=== PATIENT | female | born 1970 | race Caucasian/White ===

== ENCOUNTER 2020-03-01 19:44 | Emergency (ER) | payer BC ==
[2020-03-01] MEDS ORDERED: NA CHLORIDE 0.9% 1,000 ML ONE (20:38)
[2020-03-01] MEDS ORDERED: METOCLOPRAMIDE 10 MG/2mL INJ ONE (20:38)
[2020-03-01] MEDS ORDERED: DIPHENHYDRAMINE 50 MG/ML VIAL ONE (20:38)
[2020-03-01 20:39] LABS: Absolute Lymphocytes (CBC) 2.8 K/uL (0.7-4.9); Basophils % 0.7 % (0-1.3); Hematocrit 44.2 % (36.0-45.0); Lymphocytes % 31.4 % (15.3-44.8); MPV 8.5 fL (7.6-11.3); RBC Red Blood Cell Count 4.76 M/uL (3.86-4.86)
[2020-03-01] MEDS ORDERED: NA CHLORIDE 0.9% 50 ML IV ONE (20:39)
[2020-03-01 20:41] LABS: Urine Appearance CLEAR; Urine Bilirubin NEGATIVE (NEG); Urine Blood NEGATIVE (NEG); Urine Color YELLOW; Urine Glucose NEGATIVE (NEG); Urine Protein NEGATIVE (NEG); Urine Urobilinogen 0.2 mg/dL (0.2-1.0); Urine pH 6.5 (5.0-7.0)
[2020-03-01 20:42] LABS: Protime INR 0.86
[2020-03-01 21:05] LABS: Urine Microscopic Reflex ORDER UMIC
[2020-03-01 21:13] LABS: Urine Bacteria 20-50 /HPF (<20); Urine Culture Reflex Order REFLEXED; Urine RBC NONE SEEN /HPF (NONE SEEN)
[2020-03-01 21:14] LABS: ALT/SGPT 11 U/L (12-78); AST/SGOT 9 U/L (15-37); Alkaline Phosphatase 68 U/L (45-117); BUN Blood Urea Nitrogen 15 mg/dL (7-18); Bicarbonate 30 mmol/L (21-32); Bilirubin Direct 0.2 mg/dL (0-0.2); Bilirubin Total 0.6 mg/dL (0.2-1.0); Glucose Level 104 mg/dL (74-106); Magnesium 2.3 mg/dL (1.8-2.4); Protein, Total 7.8 g/dL (6.4-8.2); Sodium Level 141 mmol/L (136-145); Troponin (Emerg Dept Use Only) < 0.02 ng/mL (0.0-0.045)
--- NOTE | 2020-03-01 21:19 | RAD REPORT ---
EXAM DESCRIPTION: CT - Head Brain Wo Cont - 03/01/2020 9:12 pm CLINICAL HISTORY: HEADACHE Headache, drowsiness COMPARISON: No comparisons TECHNIQUE: All CT scans are performed using dose optimization technique as appropriate and may inclu de automated exposure control or mA/KV adjustment according to patient size. FINDINGS: No intracranial hemorrhage, hydrocephalus or extra-axial fluid collection.No areas of brai n edema or evidence of midline shift. The paranasal sinuses and mastoids are clear. The calvarium is intact. IMPRESSION: No acute intracranial abnormality.
--- NOTE | 2020-03-01 21:48 | RAD REPORT ---
EXAM DESCRIPTION: RAD - Chest Single View - 03/01/2020 9:39 pm CLINICAL HISTORY: hypertension Chest pain. COMPARISON: CHEST PA AND LAT 2 VIEW dated 12/31/2007 FINDINGS: Portable technique limits examination quality. The lungs are grossly clear. The heart is normal in size. No displaced fractures. IMPRESSION: No acute intrathoracic process suspected.
--- NOTE | 2020-03-01 22:52 | ER ---
Nurse's Notes [facility] Name: Izabella Flores Age: 49 yrs Sex: Female : 1970 Arrival Date: 03/01/2020 Time: 19:46 Bed 14 Private MD: Diagnosis: Headache;Elevated blood-pressure reading, without diagnosis of hypertension Presentation: 03/01 19:56 Chief complaint: Patient states: CASE and neck pains for several days. Took BP at home BP ll1 194/114. No cough/fever. When CASE gets severe she has N/V. Coronavirus screen: Proceed with normal triage. Patient denies a cough. Patient denies shortness of breath or difficulty breathing. Patient denies measured and/or subjective temperature greater than 100.4F prior to today's visit. Patient denies travel on a cruise ship or to a country the [facility] currently lists as an affected area. Patient denies contact with known and/or suspected case of COVID-19. Ebola Screen: Patient denies travel to an Ebola-affected area in the 21 days before illness onset. Initial Sepsis Screen: Does the patient meet any 2 criteria? No. Patient's initial sepsis screen is negative. Does the patient have a suspected source of infection? No. Patient's initial sepsis screen is negative. Risk Assessment: Do you want to hurt yourself or someone else? Patient reports no desire to harm self or others. Onset of symptoms was February 26, 2020. 19:56 Method Of Arrival: Ambulatory ll1 19:56 Acuity: LAINEY 3 ll1 Triage Assessment: 20:54 General: Appears in no apparent distress. Behavior is calm, cooperative, appropriate vc for age. Pain: Denies pain. 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 - Social history:: Smoking status: Patient reports the use of cigarette tobacco products, smokes one pack cigarettes per day. Patient uses alcohol, weekly. Patient/guardian denies using street drugs. Screenin:53 Abuse screen: Denies threats or abuse. Nutritional screening: No deficits noted. vc Tuberculosis screening: No symptoms or risk factors identified. Fall Risk None identified. Assessment: 20:57 General: Appears in no apparent distress. comfortable, Behavior is calm, cooperative, vc appropriate for age. Pain: Complains of pain in headache. Neuro: Level of Consciousness is awake, alert, obeys commands. Cardiovascular: Capillary refill < 3 seconds Patient's skin is warm and dry. Respiratory: Airway is patent Respiratory effort is even, unlabored, Respiratory pattern is regular, symmetrical. GI: No signs and/or symptoms were reported involving the gastrointestinal system. : No signs and/or symptoms were reported regarding the genitourinary system. EENT:. Derm: Skin is intact, is healthy with good turgor, Skin temperature is warm. Musculoskeletal: Circulation, motion, and sensation intact. Range of motion: intact in all extremities. 22:00 Reassessment: Patient appears in no apparent distress at this time. Patient and/or vc family updated on plan of care and expected duration. Pain level reassessed. Patient is alert, oriented x 3, equal unlabored respirations, skin warm/dry/pink. 22:35 Reassessment: Patient appears in no apparent distress at this time. Patient and/or vc family updated on plan of care and expected duration. Pain level reassessed. Patient is alert, oriented x 3, equal unlabored respirations, skin warm/dry/pink. Patient states feeling better. Patient states symptoms have improved. Vital Signs: 19:56 BP 152 / 97; Pulse 71; Resp 18; Temp 98.4; Pulse Ox 100% ; Pain 4/10; ll1 20:17 BP 148 / 95 LA (auto/reg); Pulse 77; Pulse Ox 100% on R/A; jp3 22:29 BP 162 / 94 LA (auto/reg); Pulse 70; Resp 17; Pulse Ox 100% on R/A; Pain 0/10; jp3 ED Course: 19:46 Patient arrived in ED. cl3 19:58 Triage completed. ll1 19:59 Arm band placed on Patient placed in an exam room, on a stretcher. ll1 20:01 Ronald Castellanos MD is Attending Physician. 7 20:02 Bed in low position. Call light in reach. Side rails up X 1. Warm blanket given. Verbal jp3 reassurance given. Pulse ox on. NIBP on. 20:02 Patient maintains SpO2 saturation greater than 95% on room air. jp3 20:08 Areli Larose, RN is Primary Nurse. vc 20:25 Urine collected: clean catch specimen, clear, octavia colored. jp3 20:30 Initial lab(s) drawn, by me, sent to lab. Inserted saline lock: 20 gauge in right jp3 antecubital area, using aseptic technique. Blood collected. 20:34 EKG done, by ED staff, reviewed by Ronald Castellanos MD. jp3 21:12 CT Head Brain wo Cont In Process Unspecified. EDMS 21:39 XRAY Chest (1 view) In Process Unspecified. EDMS 22:41 Removal of peripheral IV. Catheter intact, dressing applied. jp3 22:41 No provider procedures requiring assistance completed. IV discontinued, intact, vc bleeding controlled, No redness/swelling at site. Pressure dressing applied. Administered Medications: 20:44 Drug: Benadryl 50 mg Route: IVP; Site: right antecubital; vc 22:37 Follow up: Response: No adverse reaction vc 20:45 Drug: Reglan 10 mg Route: IVP; Site: right antecubital; vc 22:37 Follow up: Response: No adverse reaction vc 20:46 Drug: NS 0.9% 1000 ml Route: IV; Rate: 125 ml/hr; Site: right antecubital; vc Intake: 22:00 IV: 50ml (IV Fluid); Total: 50ml. vc Outcome: 22:46 Dis[address] ordered by . [facility] 23:00 Discharged to home ambulatory. vc 23:00 Condition: improved 23:00 Discharge instructions given to patient, Instructed on discharge instructions, follow up and referral plans. Demonstrated understanding of instructions, follow-up care. 23:01 Patient left the ED. vc Signatures: Dispatcher [employer] EDMS Jose Del Cid jp3 Lauro Slater cl3 Areli Larose, RN RN vc Edin Slater RN RN ll1 Ronald Castellanos MD MD [facility]
--- NOTE | 2020-03-01 22:52 | EDPHYS ---
Physician Documentation [facility] Name: Izabella Flores Age: 49 yrs Sex: Female : 1970 Arrival Date: 03/01/2020 Time: 19:46 Bed 14 Private MD: ED Physician Ronald Castellanos HPI: 03/01 20:38 This 49 yrs old Female presents to ER via Ambulatory with complaints of High mh7 Blood Pressure. 20:38 The patient has elevated blood pressure and discovered this at home, with a home mh7 device. Onset: The symptoms/episode began/occurred 3 day(s) ago. Modifying factors: The symptoms are aggravated by nothing, The symptoms are alleviated by nothing. Associated signs and symptoms: Pertinent positives: headache, nausea, Pertinent negatives: chest pain, dizziness, dyspnea, lightheadedness, visual changes, vomiting, weakness. Severity of symptoms: At its worst the blood pressure was moderate, earlier today, 161 mm Hg, in the emergency department the blood pressure is improved, moderately, 148 mm Hg. The patient has not experienced similar symptoms in the past, but family has similar symptoms, mother, father. 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 - Social history:: Smoking status: Patient reports the use of cigarette tobacco products, smokes one pack cigarettes per day. Patient uses alcohol, weekly. Patient/guardian denies using street drugs. ROS: 20:38 Constitutional: Negative for fever, chills, and weight loss, Eyes: Negative for injury, mh7 pain, redness, and discharge, ENT: Negative for injury, pain, and discharge, Neck: Negative for injury, pain, and swelling, Cardiovascular: Negative for chest pain, palpitations, and edema, Respiratory: Negative for shortness of breath, cough, wheezing, and pleuritic chest pain, Back: Negative for injury and pain, : Negative for injury, bleeding, discharge, and swelling, MS/Extremity: Negative for injury and deformity, Skin: Negative for injury, rash, and discoloration, Psych: Negative for depression, anxiety, suicide ideation, homicidal ideation, and hallucinations, Allergy/Immunology: Negative for hives, rash, and allergies, Endocrine: Negative for neck swelling, polydipsia, polyuria, polyphagia, and marked weight changes, Hematologic/Lymphatic: Negative for swollen nodes, abnormal bleeding, and unusual bruising. Exam: 20:38 Constitutional: This is a well developed, well nourished patient who is awake, alert, mh7 and in no acute distress. Head/Face: Normocephalic, atraumatic. Eyes: Pupils equal round and reactive to light, extra-ocular motions intact. Lids and lashes normal. Conjunctiva and sclera are non-icteric and not injected. Cornea within normal limits. Periorbital areas with no swelling, redness, or edema. ENT: Nares patent. No nasal discharge, no septal abnormalities noted. Tympanic membranes are normal and external auditory canals are clear. Oropharynx with no redness, swelling, or masses, exudates, or evidence of obstruction, uvula midline. Mucous membranes moist. Neck: Trachea midline, no thyromegaly or masses palpated, and no cervical lymphadenopathy. Supple, full range of motion without nuchal rigidity, or vertebral point tenderness. No Meningismus. Chest/axilla: Normal chest wall appearance and motion. Nontender with no deformity. No lesions are appreciated. Cardiovascular: Regular rate and rhythm with a normal S1 and S2. No gallops, murmurs, or rubs. Normal PMI, no JVD. No pulse deficits. Respiratory: Lungs have equal breath sounds bilaterally, clear to auscultation and percussion. No rales, rhonchi or wheezes noted. No increased work of breathing, no retractions or nasal flaring. 20:38 Back: No spinal tenderness. No costovertebral tenderness. Full range of motion. Skin: Warm, dry with normal turgor. Normal color with no rashes, no lesions, and no evidence of cellulitis. MS/ Extremity: Pulses equal, no cyanosis. Neurovascular intact. Full, normal range of motion. 20:38 Abdomen/GI: Exam negative for bruising, discomfort, distension, guarding, hepatomegaly, injury, masses, pulsatile mass, rebound tenderness, scars, splenomegaly, tenderness. 20:38 Neuro: Orientation: is normal, Mentation: is normal, Memory: is normal, Cranial nerves: grossly normal, Cerebellar function: is grossly normal, Motor: is normal, Sensation: is normal, Gait: is steady, at a normal pace, without difficulty, Deep tendon reflexes are normal, seizure activity, is not displayed by the patient, Abnormal movements: there are no abnormal movements. 21:41 ECG was reviewed by the Attending Physician. [facility] Vital Signs: 19:56 BP 152 / 97; Pulse 71; Resp 18; Temp 98.4; Pulse Ox 100% ; Pain 4/10; ll1 20:17 BP 148 / 95 LA (auto/reg); Pulse 77; Pulse Ox 100% on R/A; jp3 22:29 BP 162 / 94 LA (auto/reg); Pulse 70; Resp 17; Pulse Ox 100% on R/A; Pain 0/10; jp3 MDM: 20:02 Patient medically screened. [facility] 22:37 Differential diagnosis: hypertensive crisis, Malignant HTN, intracerebral hemorrhage, 7 Migraine, nonspecific headache, hypertension. Data reviewed: vital signs, nurses notes, lab test result(s), EKG, radiologic studies, CT scan, plain films. Data interpreted: cardiac monitor: rate is 70 beats/min, rhythm is normal sinus rhythm, Pulse oximetry: on room air is 100 %. Interpretation: normal. Response to treatment: the patient's symptoms have resolved after treatment, the patient's blood pressure is in an acceptable range, mental status has returned to baseline, the patient no longer shows bradycardia, the patient is not short of breath, the patient is not tachycardic, the patient's pain is gone, the patient's temperature has normalized. ED course: Feels better, NAD, VSS, no focal neurological deficits. No headache, neck pain, nausea, vomiting, chest pain, SOB, or other complaints. Discussed all test results and findings with the patient and answered all of her questions. She requests to be discharged from the ED at this time. She will follow up with her doctor in next 1-2 days. Explained that she needs to return to the ED if worsening of symptoms or other concerns.. 03/02 00:48 Counseling: I had a detailed discussion with the patient and/or guardian regarding: the [facility] historical points, exam findings, and any diagnostic results supporting the discharge/admit diagnosis, the presence of at least one elevated blood pressure reading (>120/80) during this emergency department visit, lab results, radiology results, the need for outpatient follow up. Special discussion: I have referred the patient to see his PCP for further evaluation of high blood pressure. 00:49 Counseling: I had a detailed discussion with the patient and/or guardian regarding: to [facility] return to the emergency department if symptoms worsen or persist or if there are any questions or concerns that arise at home, smoking cessation. 03/01 20:19 Order name: Basic Metabolic Panel; Complete Time: 21:47 [facility] 03/01 20:19 Order name: CBC with Diff; Complete Time: 21:13 [facility] 03/01 20:19 Order name: LFT's; Complete Time: 21:47 [facility] 03/01 20:19 Order name: Magnesium; Complete Time: 21:47 [facility] 03/01 20:19 Order name: PT-INR; Complete Time: 21:13 [facility] 03/01 20:19 Order name: Troponin (emerg Dept Use Only); Complete Time: 21:47 [facility] 03/01 20:19 Order name: CT Head Brain wo Cont; Complete Time: 21:47 [facility] 03/01 20:19 Order name: XRAY Chest (1 view); Complete Time: 21:53 [facility] 03/01 20:19 Order name: UA; Complete Time: 21:47 [facility] 03/01 21:06 Order name: Urine Microscopic Only; Complete Time: 21:47 [facility] 03/01 21:14 Order name: Urine Culture [facility] 03/01 20:19 Order name: EKG; Complete Time: 20:20 [facility] 03/01 20:19 Order name: Cardiac monitoring; Complete Time: 20:35 [facility] 03/01 20:19 Order name: EKG - Nurse/Tech; Complete Time: 20:35 [facility] 03/01 20:19 Order name: IV Saline Lock; Complete Time: 20:35 [facility] 03/01 20:19 Order name: Labs collected and sent; Complete Time: 20:35 [facility] 03/01 20:19 Order name: O2 Per Protocol; Complete Time: 20:35 [facility] 03/01 20:19 Order name: O2 Sat Monitoring; Complete Time: 20:35 7 EC/10 21:41 Rate is 60 beats/min. Rhythm is regular. QRS [place] is Normal. VA interval is normal. QRS mh7 interval is normal. QT interval is normal. No Q waves. T waves are Normal. No ST changes noted. Clinical impression: Normal ECG. Administered Medications: 20:44 Drug: Benadryl 50 mg Route: IVP; Site: right antecubital; vc 22:37 Follow up: Response: No adverse reaction vc 20:45 Drug: Reglan 10 mg Route: IVP; Site: right antecubital; vc 22:37 Follow up: Response: No adverse reaction vc 20:46 Drug: NS 0.9% 1000 ml Route: IV; Rate: 125 ml/hr; Site: right antecubital; vc Disposition: 03/01/20 22:46 Discharged to Home. Impression: Headache, Elevated blood-pressure reading, without diagnosis of hypertension. - Condition is Stable. - Discharge Instructions: General Headache Without Cause, Hypertension, [id number]. - Prescriptions for Fioricet 50- 325-40 mg Oral tablet - take 1 tablet by ORAL route every 6 hours as needed not to exceed 6 tablets per 24hrs; 10 tablet. - Medication Reconciliation Form, Thank You Letter, Antibiotic Education, Prescription Opioid Use form. - Follow up: Private Physician; When: 1 - 2 days; Reason: Worsening of condition, Re-evaluation by your physician. - Problem is an acute exacerbation. - Symptoms have improved. Signatures: Dispatcher [employer] EDMS Areli Larose RN RN vc Lewis, Lynsay, RN RN ll1 Ronald Castellanos MD MD mh7 Corrections: (The following items were deleted from the chart) 23:01 22:46 03/01/2020 22:46 Discharged to Home. Impression: Headache; Elevated vc blood-pressure reading, without diagnosis of hypertension. Condition is Stable. Forms are Medication Reconciliation Form, Thank You Letter, Antibiotic Education, Prescription Opioid Use. Follow up: Private Physician; When: 1 - 2 days; Reason: Worsening of condition, Re-evaluation by your physician. Problem is an acute exacerbation. Symptoms have improved. mh7
[2020-03-01 23:16] VITALS: O2SAT 100
[2020-03-01 23:17] VITALS: TEMP 98.4
[2020-03-01 23:18] VITALS: BP 162/94
--- NOTE | 2020-03-02 18:46 | EKG ---
Test Date: 2020-03-01 Test Time: 20:43:06 Event Management Consultant: MELISSA MEASUREMENT RESULTS: Intervals: Rate: 60 NM: 148 QRSD: 84 QT: 398 QTc: 398 [place]: P: 77 NM: 148 QRS: 73 T: 78 INTERPRETIVE STATEMENTS: Normal sinus rhythm Normal ECG Compared to ECG 02/08/2017 15:15:55 No significant changes Electronically Signed On 03-02-20 18:44:02 CDT by Jay Joseph
== END 2020-03-01 23:01 | disposition home or self-care (01) ==
LOC: ER 19:44
DX: R03.0 Elevated blood-pressure reading, without diagnosis of hypertension (principal); Z88.2 Allergy status to sulfonamides; Z91.018 Allergy to other foods; F17.210 Nicotine dependence, cigarettes, uncomplicated
CPT/HCPCS: 93005; 87088; 85025; 87086; 80048; 36415; 83735; 85610; 80076; 84484; 70450; 71045; 96375; 96374; 99284; J2765; J1200; J7030; 81003; 81015

== ENCOUNTER 2023-05-24 06:34 | Day surgery (SDC) | payer BC ==
[2023-05-24] MEDS ORDERED: Ringers Lactate 1,000 ML IV ONE (07:18)
[2023-05-24] MEDS ORDERED: propofoL 200 MG/20 ML VIAL IV ONE ×3 (07:31→09:11)
[2023-05-24] MEDS ORDERED: LIDOCAINE 1% MPF 5 ML VIAL ONE (07:32)
[2023-05-24] MEDS ORDERED: EPHEDRINE SULF 50 MG/ML VIAL ONE (09:11)
[2023-05-24] MEDS ORDERED: GLYCOPYRROLATE 0.2 MG/ML SYR ONE (09:42)
[2023-05-24] MEDS ORDERED: ONDANSETRON 4 MG/2 ML VIAL ONE (10:14)
[2023-05-24 11:08] VITALS: O2SAT 100
[2023-05-24 11:10] VITALS: TEMP 97.7
[2023-05-24 11:12] VITALS: BP 137/72
== END 2023-05-24 10:20 | disposition home or self-care (01) ==
LOC: OR 06:34
PROVIDERS: ATTEND Surgery
PROC: 0DBL8ZX Excision of Transverse Colon, Via Natural or Artificial Opening Endoscopic, Diagnostic (ICD-10-PCS; 2023-05-24)
PROC: 0DBN8ZX Excision of Sigmoid Colon, Via Natural or Artificial Opening Endoscopic, Diagnostic (ICD-10-PCS; 2023-05-24)
PROC: 0DBM8ZX Excision of Descending Colon, Via Natural or Artificial Opening Endoscopic, Diagnostic (ICD-10-PCS; principal; 2023-05-24 08:15)
DX: R19.5 Other fecal abnormalities (principal); I10 Essential (primary) hypertension; F32.A Depression, unspecified; F17.210 Nicotine dependence, cigarettes, uncomplicated; K63.5 Polyp of colon
CPT/HCPCS: 45384; 88305; J2704 ×3; J2001; J2405; J7120

== ENCOUNTER 2025-03-10 16:05 | Emergency (ER) | payer BC ==
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
--- NOTE | 2025-03-10 17:11 | EDPHYS ---
Physician Documentation [facility] Name: Izabella Flores Age: 54 yrs Sex: Female : 1970 Arrival Date: 03/10/2025 Time: 16:05 Bed 23 Private MD: ED Physician Leela Alberto HPI: 03/10 17:06 This 54 yrs old Female presents to ER via Ambulatory with complaints of Hip gb1 Pain - Right, Leg Pain - Right. 17:06 54-year-old female ran into the couch with her right thigh twice over the gb1 last 3 to 4 days. Patient's house is being remodeled and she is not used to the couch being in that spot and when she turned the corner she ran into it full force. She is able to get up and walk around but she has pain that radiates to her hip joint on the right side. Patient denies any ground-level fall. She has been taking Guys and Tylenol for pain. Her pain right now is 8 out of 10.. Historical: - Allergies: 16:50 Sulfa (Sulfonamide Antibiotics); ap3 16:50 AVOCADO (LAURUS PERSEA); ap3 - PMHx: 16:50 Arthritis; head/neck problems from horse accident; Migraines; ap3 - Immunization history:: Client reports having NOT received the Covid vaccine. Flu vaccine is not up to date. - Infectious Disease History:: Denies. - Social history:: Smoking status: Patient reports the use of cigarette tobacco products, smokes one pack cigarettes per day. Exam: 17:06 Constitutional: This is a well developed, well nourished patient who is awake, alert, gb1 and in no acute distress. Head/Face: Normocephalic, atraumatic. Eyes: Pupils equal round and reactive to light, extra-ocular motions intact. Lids and lashes normal. Conjunctiva and sclera are non-icteric and not injected. Cornea within normal limits. Periorbital areas with no swelling, redness, or edema. ENT: Nares patent. No nasal discharge, no septal abnormalities noted. Tympanic membranes are normal and external auditory canals are clear. Oropharynx with no redness, swelling, or masses, exudates, or evidence of obstruction, uvula midline. Mucous membranes moist. Neck: Trachea midline, no thyromegaly or masses palpated, and no cervical lymphadenopathy. Supple, full range of motion without nuchal rigidity, or vertebral point tenderness. No Meningismus. Chest/axilla: Normal chest wall appearance and motion. Nontender with no deformity. No lesions are appreciated. Cardiovascular: Regular rate and rhythm with a normal S1 and S2. No gallops, murmurs, or rubs. Normal PMI, no JVD. No pulse deficits. Respiratory: Lungs have equal breath sounds bilaterally, clear to auscultation and percussion. No rales, rhonchi or wheezes noted. No increased work of breathing, no retractions or nasal flaring. Abdomen/GI: Soft, non-tender, with normal bowel sounds. No distension or tympany. No guarding or rebound. No evidence of tenderness throughout. Back: No spinal tenderness. No costovertebral tenderness. Full range of motion. Skin: Warm, dry with normal turgor. Normal color with no rashes, no lesions, and no evidence of cellulitis. MS/ Extremity: Right thigh is tender midshaft femur. No contusion or abrasion on the right thigh. Vital Signs: 16:48 BP 130 / 88; Pulse 85; Resp 17; Temp 98.7; Pulse Ox 98% ; Weight 72.57 kg; Height 5 ft. ap3 7 in. ; Pain 6/10; 16:48 Body Mass Index 25.06 (72.57 kg, 170.18 cm) ap3 16:48 Pain Scale: Adult ap3 MDM: 16:53 Medical Screening Exam initiated gb1 17:06 Data reviewed: vital signs, nurses notes. ED course: 54-year-old female with a right gb1 quadricep contusion. Patient is able to stand without incidence and ambulate. She is able to flex at the knee and the hip. She does not have any contusion or abrasion on the right anterior thigh. Recommend NSAIDs for pain. Doubt femur fracture or hip dislocation. Recommend MRI of the right hip or pelvis if pain persist past 2 weeks.. Administered Medications: 17:05 CANCELLED (Duplicate Order): [id number] mg IVP once gb1 17:40 Drug: Ketorolac IM 60 mg IM once Route: IM; Site: right gluteus; ss 17:41 Follow up: Response: No adverse reaction; Medication Administered at Departure ss Disposition Summary: 03/10/25 17:11 Discharge Ordered Notes: Location: Home gb1 Problem: new gb1 Symptoms: have improved gb1 Condition: Stable gb1 Diagnosis - Strain of muscle, fascia and tendon of right hip gb1 - Strain of other specified muscles, fascia and tendons at thigh level, right thigh gb1 Followup: gb1 - With: Private Physician - When: - Reason: Further diagnostic work-up, Re-evaluation by your physician Discharge Instructions: - Discharge Summary Sheet gb1 - Muscle Strain, [id number] gb1 Forms: - Medication Reconciliation Form gb1 - Antibiotic Education gb1 - Prescription Opioid Use gb1 - Patient Portal Instructions gb1 - Leadership Thank You Letter gb1 Prescriptions: - Ibuprofen 800 mg Oral Tablet - take 1 tablet ORAL route every 12 hours As needed take with food; 20 tablet; gb1 Refills: 0, Product Selection Permitted Signatures: Rosalia Villeda RN MIGUE Mariella Nieves RN RN ap3 Leela Alberto MD MD gb1 Corrections: (The following items were deleted from the chart) 17:05 17:03 Ketorolac IVP 30 mg IVP once ordered. gb1 gb1
[2025-03-10] MEDS ORDERED: KETOROLAC 30 MG/ML INJ ONE (17:34)
[2025-03-10 17:52] VITALS: BP 130/88; TEMP 98.7; O2SAT 98
== END 2025-03-10 17:45 | disposition home or self-care (01) ==
LOC: ER 16:05
DX: S76.011A Strain of muscle, fascia and tendon of right hip, initial encounter (principal); S76.811A Strain of other specified muscles, fascia and tendons at thigh level, right thigh, initial encounter; F17.210 Nicotine dependence, cigarettes, uncomplicated
CPT/HCPCS: 96372; 99284